=== PATIENT | female | born 1970 | race Caucasian/White ===

== ENCOUNTER 2018-05-30 23:59 | Emergency (ER) | payer OTHER ==
[~2018-05-30] VITALS: Ht 160 cm; Wt 63.6 kg
[2018-05-31 00:15] VITALS: Ht 160 cm; Wt 63.6 kg
[2018-05-31] MEDS ORDERED: NAPROXEN250 MG PO (00:17)
[2018-05-31] MEDS ORDERED: TORADOL10 MG PO (02:54)
[2018-05-31 03:22] VITALS: BP 162/88
== END 2018-05-31 03:22 | disposition home or self-care (01) ==
LOC: D.ER 23:59
DX: S00.83XA Contusion of other part of head, initial encounter (principal); S80.01XA Contusion of right knee, initial encounter; S40.011A Contusion of right shoulder, initial encounter; V19.9XXA Pedal cyclist (driver) (passenger) injured in unspecified traffic accident, initial encounter; Y93.55 Activity, bike riding; Y92.410 Unspecified street and highway as the place of occurrence of the external cause; F17.200 Nicotine dependence, unspecified, uncomplicated